=== PATIENT | male | born 1985 | race Caucasian/White ===

== ENCOUNTER 2021-10-12 07:13 | Day surgery (SDC) | payer OTHER ==
[2021-10-12] VITALS (205 sets, daily range): BP systolic 84–152; BP diastolic 45–117
[~2021-10-12] VITALS: Ht 193 cm; Wt 99.8 kg
--- NOTE | 2021-10-12 07:45 | NUR ---
PT ARRIVED TO UNIT, PT A&O NAD. PT HAS BEEN ORIENTED TO ROOM AND PLACED ON FALL PRECAUTIONS. PT HAS CALL LIGHT NEAR, AND WILL CONTINUE TO MONITOR. PT HAS NO QUESTIONS OR NEEDS AT THIS TIME.
[2021-10-12 07:52] LABS: HEMATOCRIT 41.9 % (39.0-50.0); HEMOGLOBIN 14.1 g/dl (14.0-18.0); IMMATURE GRANULOCYTES 0.1 % (0.0-5.0); MEAN CELL VOLUME 84.6 fL CALC (80.0-100.0); MEAN CORPUSCULAR HGB 28.5 pG CALC (26.0-32.0); MEAN CORPUSCULAR HGB CONC 33.7 g/dL CAL (32.0-36.0); NEUT# 3.27 thou/uL (1.82-7.42); RED BLOOD COUNT 4.95 mill/uL (4.70-6.10); RED CELL DISTRI WIDTH 11.9 % (11.5-15.5)
[2021-10-12 08:23] LABS: ALBUMIN 4.6 g/dL (3.2-5.0); ALKALINE PHOSPHATASE 67 u/l (38-126); ANION GAP 10 (6-22 (CALC)); BILIRUBIN, TOTAL 0.6 mg/dL (0.0-1.4); BUN 13 mg/dL (9-20); BUN/CREATININE RATIO 16 (12-20 (CALC)); CARBON DIOXIDE 32 mmol/l (22-30); CHLORIDE 101 mmol/l (95-108); CREATININE 0.8 mg/dL (0.7-1.3); GFR FOR AFR.AMER. > 60 ML/MIN (>=60 (CALC)); GFR OTHER RACES > 60 ML/MIN (>=60 (CALC)); POTASSIUM 3.4 mmol/l (3.5-5.1); SGOT/AST 26 u/l (17-59); SODIUM 139 mmol/l (137-146)
--- NOTE | 2021-10-12 10:20 | NUR ---
PT VITAL SIGNS REASSESSED. PT RESTING COMFORTABLY AT THIS TIME.
[2021-10-12] MEDS ORDERED: NALTREXONE50 MG PO (11:52)
[2021-10-12] MEDS ORDERED: CLONIDINE0.1 MG PO (11:52)
[2021-10-12] MEDS ORDERED: KLONOPIN2 MG PO (11:53)
--- NOTE | 2021-10-12 12:15 | NUR ---
Induction Note Patient to [facility] procedure room. Time out performed at 1215 . Patient placed on monitors, Carmita hugger, bilateral wrist restraints applied for ET tube protection. Versed 5mg given IV push at 1216 Tourniquet applied to left arm Lidocaine 100mg given at 1217 IV push followed by Rocoronium 10mg at 1218 IV push and held for 90 seconds. Propofol bolus of 120 mg given at 1220 IV push. Succinylcholine 80mg given IV push at 1221 . Smooth intubation with 7.5 ETT. Positive CO2. Positive Auscultation for air exchange. Patient placed on ventilator for spontaneous ventilation. Placed on Propofol IV drip at 1222. OG inserted. Positive air on auscultation. Positive gastric content. Stomach washed at this time.
--- NOTE | 2021-10-12 12:55 | NUR ---
OG close note Stomach washed at this time. Naltrexone 75 mg via OG tube. OG will be clamped for 45 minutes.
--- NOTE | 2021-10-12 13:40 | NUR ---
OG open note OG open at this time. Gastric content draining into drainage bag. OG to drain for 45 minutes. Propofol will be titrated down based on patient.
--- NOTE | 2021-10-12 14:25 | NUR ---
OG close note Stomach washed at this time. Naltrexone 50 mg with Clonidine 0.3 mg via OG tube. OG will be clamped for 45 minutes.
--- NOTE | 2021-10-12 15:50 | NUR ---
OG close note Stomach washed at this time. Naltrexone 50 mg with Clonidine 0.2 mg via OG tube. OG will be clamped for 45 minutes.
--- NOTE | 2021-10-12 18:20 | NUR ---
Closing medications given Benadryl 50mg IV push, Decadron 10mg IV push,Magnesium 4 grams IV, Zofran 8mg IV push, Octreotide 100mcg SC. Stomach washed out prior to extubation.
--- NOTE | 2021-10-12 18:56 | NUR ---
Extubation note Suctioned gastric content. OG removed. Patient extubated. Propofol Discontinued. Wrist restraints removed. Carmita hugger Removed. See ANR Moderate sedate recovery record for further notes and assessment.
--- NOTE | 2021-10-12 19:10 | NUR ---
PT TRANSFERRED TO MS FLOOR VIA STRETCHER. PT IS AROUSABLE, RESP RONNI AND UNLABORED. NAD. PT VS HAVE BEEN ASSESSED WHEN PLACED IN ROOM. PT BED ALARM ACTIVE IVF INFUSING. REPORT GIVEN TO PM NURSE TO RESUME CARE.
--- NOTE | 2021-10-12 19:18 | NUR ---
PATIENT IN BED. SLIGHT SWEATING OBSERVED. NO SIGNS OF DISTRESS. NO SIGNS OF PAIN. PATIENT APPEARS RESTING WITH EYES CLOSED. BED IN LOW POSITION. CALL LIGHT IN REACH. BED ALARM ACTIVE.
--- NOTE | 2021-10-12 21:45 | NUR ---
PATIENT REMOVED BOTH IVS OUT OF LEFT. AC AND RIGHT HAND. NEW IV SITE #22 TO RIGHT HAND STARTED.
--- NOTE | 2021-10-12 23:53 | NUR ---
BED ALARM WAS SOUNDING. PATIENT OBSERVED SITTING ON SIDE OF BED. PATIENT VOICED HE NEEDED TO VOID. SUPERVISED PATIENT WALK TO BATHROOM. PATIENT VOIDED CLEAR, YELLOW URINE. PATIENT AMBULATED BACK TO BED WITHOUT DIFFICULTY.
[2021-10-13 04:12] VITALS: BP 128/69
--- NOTE | 2021-10-13 04:51 | NUR ---
RECEIVED ALL SCHEDULED MEDS THIS SHIFT. PATIENT ALERT. ABLE TO MAKE NEEDS KNOWN. AMBULATES TO THE BATHROOM WHEN NEEDED WITH SUPERVISION. BED REMAINS IN LOW POSITION. CALL WEBB IN REACH. BED ALARM REMAINS ACTIVE FOR SAFETY PURPOSES.
[2021-10-13 05:16] LABS: HEMATOCRIT 38.3 % (39.0-50.0); HEMOGLOBIN 13.5 g/dl (14.0-18.0); MEAN CELL VOLUME 81.5 fL CALC (80.0-100.0); MEAN CORPUSCULAR HGB 28.7 pG CALC (26.0-32.0); MEAN CORPUSCULAR HGB CONC 35.2 g/dL CAL (32.0-36.0); NEUT# 8.36 thou/uL (1.82-7.42); RED BLOOD COUNT 4.7 mill/uL (4.70-6.10); RED CELL DISTRI WIDTH 11.6 % (11.5-15.5)
[2021-10-13 05:47] LABS: ALBUMIN 4.3 g/dL (3.2-5.0); ALKALINE PHOSPHATASE 72 u/l (38-126); ANION GAP 11 (6-22 (CALC)); BILIRUBIN, TOTAL 0.5 mg/dL (0.0-1.4); BUN 10 mg/dL (9-20); BUN/CREATININE RATIO 14 (12-20 (CALC)); CARBON DIOXIDE 28 mmol/l (22-30); CHLORIDE 105 mmol/l (95-108); CREATININE 0.7 mg/dL (0.7-1.3); GFR FOR AFR.AMER. > 60 ML/MIN (>=60 (CALC)); GFR OTHER RACES > 60 ML/MIN (>=60 (CALC)); MAGNESIUM 2.4 mg/dL (1.6-2.3); SGOT/AST 23 u/l (17-59); SODIUM 140 mmol/l (137-146); TOTAL PROTEIN 7.2 g/dL (6.3-8.2)
[2021-10-13 06:00] LABS: POTASSIUM 4.3 mmol/l (3.5-5.1)
--- NOTE | 2021-10-13 07:21 | NUR ---
RECEIVE REPORT FROM RAYRAY DICK.
[2021-10-13 07:51] VITALS: BP 126/69
--- NOTE | 2021-10-13 08:00 | NUR ---
PT ALERT AND ORIENTED X3. STABLE AT THIS TIME. PT RESTING IN BED. FALL AND SAFE PRECAUTIONS IN PLACE.
--- NOTE | 2021-10-13 12:43 | NUR ---
PATIENT RESTING IN BED. STABLE AT THIS TIME.
[2021-10-13 12:44] VITALS: BP 110/62
--- NOTE | 2021-10-13 16:24 | NUR ---
pt is discharge stable.
== END 2021-10-13 16:04 | disposition home or self-care (01) | DRG 897 ==
LOC: ANR 07:13 → MS2 07:14 → ANR 14:05
PROVIDERS: ATTEND Anesthesiology
DX: F11.20 Opioid dependence, uncomplicated (principal)
CPT/HCPCS: J2060; J2354; J3475